=== PATIENT | male | born 1975 | race Caucasian/White ===

== ENCOUNTER → 2017-05-20 | Outpatient (REF) ==
[~2017-05-20] MED LIST: NO HOME MEDICATIONS; NORCO 325 MG-51 TAB PO
== END ==
LOC: WSOH 08:50
DX: Z02.89 Encounter for other administrative examinations (principal)

== ENCOUNTER → 2017-06-26 | Outpatient (REF) | LOC: WSOH 18:00 | DX: Z02.89 Encounter for other administrative examinations (principal) ==

== ENCOUNTER 2021-11-09 07:57 | Day surgery (SDC) | payer OTHER ==
[~2021-11-09] VITALS: Ht 177.8 cm; Wt 81.0 kg
[2021-11-09 08:33] VITALS: BP 147/92; PULSE 70; TEMP 96.5
[2021-11-09 09:40] VITALS: BP 129/68; PULSE 67; TEMP 97.4
[2021-11-09 09:55] VITALS: BP 116/84; PULSE 68
[2021-11-09 10:10] VITALS: BP 127/84; PULSE 60
--- NOTE | 2021-11-09 11:01 | NUR ---
0940: Patient arrived back into bay [facility] from procedure room. Patient alert and awake. Report received from RN. Patient requesting toast with jelly and diet pepsi. at bedside. 0955: Vital signs stable. Tolerated food and drink well with no complaint of pain or nausea. 1005: Dr. Lion in to see patient. 1010: IV removed and patient got dressed independently 1015: Went through discharge instructions with patient and . Questions answered. Patient and verbalized understanding to education. 1020: Patient escorted to patient entrance via wheelchair. Got into personal vehicle and left in the care of his .
== END 2021-11-09 10:20 | disposition home or self-care (01) ==
LOC: SDCO 07:57
DX: D12.5 Benign neoplasm of sigmoid colon (principal); K64.1 Second degree hemorrhoids; R19.5 Other fecal abnormalities
CPT/HCPCS: J2704; J7030

== ENCOUNTER 2024-07-25 01:29 | Emergency (ER) | payer OTHER ==
[~2024-07-25] VITALS: Ht 177.8 cm; Wt 84.1 kg
[2024-07-25 01:34] VITALS: TEMP 97.1
[2024-07-25] MEDS ORDERED: PROTONIX 40MG T40 MG PO (02:14)
[2024-07-25 02:24] VITALS: BP 128/88; PULSE 57
== END 2024-07-25 02:22 | disposition home or self-care (01) ==
LOC: COL.ER 01:29
DX: K20.90 Esophagitis, unspecified without bleeding (principal)